=== PATIENT | male | born 1995 | race Two or more races ===

== ENCOUNTER 2019-12-12 20:52 | Emergency (ER) | payer BC ==
[2019-12-12] MEDS ORDERED: Sodium Chloride 0.9% 10 ML Syringe FLUSH PRN (21:24)
[2019-12-12] MEDS ORDERED: Sodium Chloride 0.9% 1,000 ML IV ONE (21:24)
[2019-12-12] MEDS ORDERED: Ondansetron 4 MG/2 ML SDV IVPUSH ONE (21:24)
[2019-12-12] MEDS ORDERED: Sodium Chloride 0.9% 2.5 ML Syringe FLUSH PRN (21:24)
[2019-12-12] MEDS ORDERED: Morphine 10 MG/ML Syringe IVPUSH ONE (21:25)
--- NOTE | 2019-12-12 21:30 | EDM.PDOC ---
ED HPI GENERAL MEDICAL PROBLEM - General Chief Complaint: Abdominal Pain Stated Complaint: CHILLS, ABD PAIN, VOMTTING Time Seen by Provider: 12/12/19 21:26 Source of Information: Reports: Patient, Family - History of Present Illness INITIAL COMMENTS - FREE TEXT/NARRATIVE: The patient is a healthy 24-year-old male who presents to the ER for abdominal pain. A couple of days ago he started having some mild generalized abdominal pain and he had some diarrhea but the diarrhea has mostly resolved. He has not vomited but he feels nauseous all the time. The pain is mostly on the left side but sometimes moves slightly to the right but overall stays on the left. Nothing makes it better and nothing makes it worse. He does not have any fevers that he knows of but he does have some generalized arthralgias and myalgias. No one else he has been in contact with is sick, and he has not traveled anywhere unusual. No back pain, no dysuria urinary frequency, no lower abdominal tenderness or any other acute complaints. abdomen Pain Score (Numeric/FACES): 5 - Related Data Allergies Allergy/AdvReac Type Severity Reaction Status Date / Time acetaminophen [From Tylenol] Allergy Difficulty Verified 12/12/19 21:13 Swallowing Home Meds: Home Meds . [Unable to Verify Home Med List] 12/12/19 [History] Past Medical History - Past Health History Medical/Surgical History: Denies Medical/Surgical History Cardiovascular History: Reports: High Cholesterol - Infectious Disease History Infectious Disease History: Reports: Influenza Social & Family History - Tobacco Use Smoking Status *Q: Never Smoker Second Hand Smoke Exposure: No - Caffeine Use Caffeine Use: Reports: None - Recreational Drug Use Recreational Drug Use: No ED ROS GENERAL - Review of Systems Review Of Systems: See Below (Positive for abdominal pain, positive for nausea, negative for vomiting, positive for diarrhea that has resolved, positive for myalgias, positive for arthralgias, all other Positives and pertinent negatives as per HPI. All other pertinent systems were reviewed and are negative) ED EXAM, GI/ABD - Physical Exam Exam: See Below Text/Narrative:: Constitutional: Nontoxic, looks like he does not feel well, obese HEENT.: Normocephalic, Atraumatic, PERRL, EOMI, External ears are atraumatic, nares are patent without epistaxis Neck: Normal range of motion, Trachea Midline, No stridor Respiratory.: No respiratory distress, No tachypnea, Lungs Clear to Auscultation bilaterally without wheezes, rales, or rhonchi Cardiovascular.: Tachycardic rate and Rhythm without murmurs, rubs, or gallops , good peripheral perfusion GI: Exam is limited secondary to obesity, but the abdomen overall appears soft and is not distended but there is subjective left sided tenderness Genital Urinary: Deferred Musculoskeletal: Good range of motion. All 4 extremities present and atraumatic , no edema Back: Full Range of Motion, no CVA tenderness Skin: Warm, Dry, Color is ethnicity appropriate, No acute rash. Lymphatic: No lymphadenopathy noted Neurological: Alert, Awake and oriented x 3, No focal deficits noted appreciate , GCS 15 Psych: Affect, Judgement, mood normal Course - Vital Signs Text/Narrative:: Differential diagnosis includes ascending cholangitis, choledocholithiasis, cholangitis, pancreatitis, perforated gastric ulcer, diverticulitis, diverticular abscess, appendicitis, peritonitis, inflammatory bowel disease, enteritis, others The patient received fluids and Zofran and some morphine and he is feeling more comfortable. Because of the mild transaminitis and the difficulty in evaluating the patient's abdomen secondary to his obesity a CT scan of the abdomen and pelvis with IV contrast was obtained. Does not show any signs of any inflammatory lesions, masses, or any medical or surgical emergencies. The entire clinical scenario the patient is stable for discharge and he will be provided with a PCP for outpatient follow-up. Last Recorded V/S: Last Vital Signs Temp 37.0 C 12/12/19 23:08 Pulse 102 H 12/12/19 23:08 Resp 18 12/12/19 23:08 BP 136/87 12/12/19 23:08 Pulse Ox 96 12/12/19 23:08 - Orders/Labs/Meds Orders: Active Orders 24 hr Category Date Time Status Sodium Chloride 0.9% [Saline Flush] Med 12/12/19 21:24 Active 10 ml FLUSH ASDIRECTED PRN Sodium Chloride 0.9% [Saline Flush] Med 12/12/19 21:24 Active 2.5 ml FLUSH ASDIRECTED PRN Saline Lock Insert [OM.PC] Stat Oth 12/12/19 21:24 Ordered Medication Orders Sodium Chloride (Saline Flush) 10 ml FLUSH ASDIRECTED PRN PRN Reason: Keep Vein Open Last Admin: 12/12/19 21:55 Dose: 10 ml Sodium Chloride (Saline Flush) 2.5 ml FLUSH ASDIRECTED PRN PRN Reason: Keep Vein Open Last Admin: 12/12/19 21:55 Dose: 2.5 ml Labs: Laboratory Tests 12/12/19 12/12/19 Range/Units 21:44 21:44 WBC 10.32 (4.0-11.0) K/uL RBC 4.91 (4.50-5.90) M/uL Hgb 15.8 (13.0-17.0) g/dL Hct 44.5 (38.0-50.0) % MCV 90.6 (80.0-98.0) fL MCH 32.2 H (27.0-32.0) pg MCHC 35.5 (31.0-37.0) g/dL RDW Std Deviation 40.9 (28.0-62.0) fl RDW Coeff of Brooke 12 (11.0-15.0) % Plt Count 232 (150-400) K/uL MPV 10.20 (7.40-12.00) fL Neut % (Auto) 82.4 H (48.0-80.0) % Lymph % (Auto) 11.8 L (16.0-40.0) % [place] % (Auto) 4.7 (0.0-15.0) % Eos % (Auto) 1.0 (0.0-7.0) % Baso % (Auto) 0.1 (0.0-1.5) % Neut # (Auto) 8.5 H (1.4-5.7) K/uL Lymph # (Auto) 1.2 (0.6-2.4) K/uL [place] # (Auto) 0.5 (0.0-0.8) K/uL Eos # (Auto) 0.1 (0.0-0.7) K/uL Baso # (Auto) 0.0 (0.0-0.1) K/uL Nucleated RBC % 0.0 /100WBC Nucleated RBCs # 0 K/uL Sodium 137 (136-148) mmol/L Potassium 3.8 (3.5-5.1) mmol/L Chloride 100 (98-107) mmol/L Carbon Dioxide 27.8 (21.0-32.0) mmol/L BUN 11 (7.0-18.0) mg/dL Creatinine 0.8 (0.8-1.3) mg/dL Est Cr Clr Drug Dosing 126.27 mL/min Estimated GFR (MDRD) > 60.0 ml/min Glucose 102 (74-106) mg/dL Calcium 8.8 (8.5-10.1) mg/dL Total Bilirubin 0.5 (0.2-1.0) mg/dL AST 48 H (15-37) IU/L ALT 101 H (14-63) IU/L Alkaline Phosphatase 113 (46-116) U/L Total Protein 8.0 (6.4-8.2) g/dL Albumin 3.6 (3.4-5.0) g/dL Globulin 4.4 H (2.6-4.0) g/dL Albumin/Globulin Ratio 0.8 L (0.9-1.6) Lipase 86 (73-393) U/L Meds: Medications Generic Name Dose Route Start Last Admin Trade Name Freq PRN Reason Stop Dose Admin Sodium Chloride 10 ml 12/12/19 21:24 12/12/19 21:55 Saline Flush FLUSH 10 ml ASDIRECTED PRN Administration Keep Vein Open Sodium Chloride 2.5 ml 12/12/19 21:24 12/12/19 21:55 Saline Flush FLUSH 2.5 ml ASDIRECTED PRN Administration Keep Vein Open Discontinued Medications Generic Name Dose Route Start Last Admin Trade Name Freq PRN Reason Stop Dose Admin Sodium Chloride 1,000 mls @ 999 mls/hr 12/12/19 21:24 12/12/19 21:52 Normal Saline IV 12/12/19 22:24 999 mls/hr BOLUS ONE Administration Iopamidol 100 ml 12/12/19 22:52 12/12/19 22:53 Isovue-370 (76%) IVPUSH 12/12/19 22:53 100 ml ONETIME ONE Administration Morphine Sulfate 8 mg 12/12/19 21:25 12/12/19 21:54 Morphine IVPUSH 12/12/19 21:26 8 mg ONETIME ONE Administration Ondansetron HCl 4 mg 12/12/19 21:24 12/12/19 21:52 Zofran IVPUSH 12/12/19 21:25 4 mg ONETIME ONE Administration Departure - Departure Time of Disposition: 23:28 Disposition: Home, Self-Care 01 Condition: Good Clinical Impression: Abdominal pain - Discharge Information Instructions: Abdominal Pain, Adult, [id number] Referrals: PCP,Not In Area [Primary Care Provider] - Forms: ED Department Discharge Sepsis Event Note - Evaluation Sepsis Screening Result: No Definite Risk - Focused Exam Vital Signs: Vital Signs Temp Pulse Resp BP Pulse Ox 12/12/19 23:08 37.0 C 102 H 18 136/87 96 12/12/19 21:51 110 H 18 146/94 H 96 12/12/19 21:10 37.1 C 119 H 18 145/93 H 96 Date Exam was Performed: 12/12/19 Time Exam was Performed: 23:27 - My Orders Last 24 Hours: My Active Orders 12/12/19 21:24 Sodium Chloride 0.9% [Saline Flush] 10 ml FLUSH ASDIRECTED PRN Sodium Chloride 0.9% [Saline Flush] 2.5 ml FLUSH ASDIRECTED PRN Saline Lock Insert [OM.PC] Stat - Assessment/Plan Last 24 Hours: My Active Orders 12/12/19 21:24 Sodium Chloride 0.9% [Saline Flush] 10 ml FLUSH ASDIRECTED PRN Sodium Chloride 0.9% [Saline Flush] 2.5 ml FLUSH ASDIRECTED PRN Saline Lock Insert [OM.PC] Stat
[2019-12-12 22:21] LABS: BLOOD UREA NITROGEN,BUN 11 mg/dL (7.0-18.0); CARBON DIOXIDE,CO2 27.8 mmol/L (21.0-32.0); CHLORIDE,CL 100 mmol/L (98-107); GLUCOSE RANDOM 102 mg/dL (74-106); LIPASE 86 U/L (73-393); POTASSIUM,K 3.8 mmol/L (3.5-5.1); SODIUM,NA 137 mmol/L (136-148)
[2019-12-12] MEDS ORDERED: Iopamidol 755 Mg/ML 100 ML Bottle IVPUSH ONE (22:52)
--- NOTE | 2019-12-12 23:24 | CT ---
INDICATION: Abdominal pain COMPARISON: None available TECHNIQUE: CT examination of the abdomen and pelvis was performed with the uneventful intravenous administration of 100 cc of Isovue 370 while 3 mm thick axial sections were obtained from the lung bases through the pubic symphysis. Oral contrast was not administered. Please note that all CT scans at this facility use dose modulation, iterative reconstruction, and/or weight-based dosing when appropriate to reduce radiation dose to as low as reasonably achievable. FINDINGS: In the abdomen, the liver, spleen, pancreas, and adrenals are normal in appearance. The kidneys are normal in appearance. The gallbladder is moderately distended but is otherwise normal in appearance. The abdominal aorta is normal in caliber with no sign of dilatation. There is no sign of retroperitoneal mass or adenopathy. The stomach, loops of small bowel, and colon in the abdomen are normal in appearance. In the pelvis, the appendix is normal in appearance with no sign of inflammatory process. The loops of small bowel and colon in the pelvis are normal in appearance. The prostate is normal in appearance. The urinary bladder is normal in appearance. There is no sign of pelvic or inguinal mass or adenopathy. The lung bases are clear. The osseous structures are normal in appearance for the patient`s age. IMPRESSION: Nothing seen to explain the patient`s abdominal pain. Normal CT of the abdomen with contrast. Normal CT of the pelvis with contrast. Please note that all CT scans at this facility use dose modulation, iterative reconstruction, and/or weight-based dosing when appropriate to reduce radiation dose to as low as reasonably achievable. Dictated by Eddie Gerber MD @ Dec 12 2019 11:18PM Signed by Dr. Eddie Gerber @ Dec 12 2019 11:22PM
== END 2019-12-12 23:39 | disposition home or self-care (01) ==
LOC: MW.ED 20:52
DX: R10.84 Generalized abdominal pain (principal); R19.7 Diarrhea, unspecified; Z88.8 Allergy status to other drugs, medicaments and biological substances
CPT/HCPCS: 36415; 74177; 80053; 83690; 85025; 96361; 96374; 96375; 99284; J2270; J2405; J7030; Q9967